=== PATIENT | female | born 1950 | race Caucasian/White ===

== ENCOUNTER 2016-12-18 11:35 | Day surgery (SDC) | payer MEDICARE, OTHER ==
[2016-12-18] MEDS ORDERED: FENTANYL CITRATE INJ/PF 100 MCG/2 ML AMPUL ONE (11:48)
[2016-12-18] MEDS ORDERED: ONDANSETRON HCL INJ/PF 4 MG/2 ML SDV ONE (11:48)
[2016-12-18] MEDS ORDERED: DIPHENHYDRAMINE HCL 50 MG/ML VIAL ONE (11:48)
[2016-12-18] MEDS ORDERED: NALOXONE HCL INJ/PF 0.4 MG/1 ML SDV ONE (11:48)
[2016-12-18] MEDS ORDERED: PROMETHAZINE HCL INJ 25 MG/1 ML VIAL ONE (11:48)
[2016-12-18] MEDS ORDERED: GLUCAGON,HUMAN RECOMB 1 MG INJ ONE (11:49)
[2016-12-18] MEDS ORDERED: EPINEPHRINE INJ 1 MG/10 ML DISP.SYRIN ONE (11:49)
[2016-12-18] MEDS ORDERED: FLUMAZENIL INJ 0.5 MG/5 ML VIAL IV ONE (11:49)
[2016-12-18] MEDS: MIDAZOLAM 2 MG/2 ML INJ ONE ×2 (12:33→12:38)
--- NOTE | 2016-12-18 12:53 | Operative Report ---
Operative Report DATE OF SURGERY: 12/18/16 Operative Report: The risks benefits and alternatives of the procedure explained to the patient in detail and informed consent is obtained that GIF Olympus video scope was inserted into the patient's mouth and hypopharynx the esophagus is identified intubated and insufflated the scope was then advanced through the esophagus stomach and duodenum retroflexion maneuver is done the esophagus stomach and first and second portions of the duodenum examined PREOPERATIVE DIAGNOSIS: Epigastric pain POSTOPERATIVE DIAGNOSIS: Gastritis, duodenitis OPERATION: EGD with biopsy SURGEON: WINSOME ALVAREZ ANESTHESIA: Moderate Sedation - 4 mg of Versed, 75 g of fentanyl. Conscious sedation monitoring time 15 minutes. TISSUE REMOVED OR ALTERED: Gastric specimen obtained rule out Helicobacter pylori COMPLICATIONS: None. ESTIMATED BLOOD LOSS: none INTRAOPERATIVE FINDINGS: Esophagus normal. Gastritis status post biopsy rule out Helicobacter pylori. Mild duodenitis PROCEDURE: Patient tolerated the procedure well. No immediate postprocedure complications are noted. Patient is discharged in good condition. Discharge date 12/18/2016. Discharge diet: Regular. Discharge activity: Regular. 2-3 week follow-up to discuss findings. We'll await on biopsies. Patient is instructed to go to the office or proceed to the emergency room after any further problems or questions
[2016-12-18 13:48] VITALS: BP 102/71
== END 2016-12-18 13:48 | disposition home or self-care (01) ==
LOC: END 11:35
PROVIDERS: ATTEND Internal Medicine Gastroenterology
PROC: 0DB68ZX Excision of Stomach, Via Natural or Artificial Opening Endoscopic, Diagnostic (ICD-10-PCS; principal; 2016-12-18 12:30)
DX: K21.9 Gastro-esophageal reflux disease without esophagitis (principal); K31.9 Disease of stomach and duodenum, unspecified; K29.80 Duodenitis without bleeding; G35 Multiple sclerosis; G89.4 Chronic pain syndrome; Z79.899 Other long term (current) drug therapy
CPT/HCPCS: 43239; 88342 ×2; 88305 ×2; J2250; J3010; J0171; J1200; J1610; J2310; J2405; J2550; J3490

== ENCOUNTER 2018-03-12 18:30 | Emergency (ER) | payer MEDICARE ==
--- NOTE | 2018-03-12 19:11 | RADIOLOGY REPORT (SQ) ---
EXAM DESCRIPTION: CHEST SINGLE VIEW COMPLETED DATE/TIME: 03/12/2018 6:57 pm REASON FOR STUDY: bed 3 sepsis protocol COMPARISON: None. EXAM PARAMETERS: NUMBER OF VIEWS: One view. TECHNIQUE: Single frontal radiographic view of the chest acquired. RADIATION DOSE: NA LIMITATIONS: None. FINDINGS: LUNGS AND PLEURA: Possible 12 mm left pulmonary nodule adjacent to the heart border. 2 sm all nodular densities are present in the right upper lobe. MEDIASTINUM AND HILAR STRUCTURES: No masses. Contour normal. HEART AND VASCULAR STRUCTURES: Heart normal in size. Normal vasculature. BONES: No acute findings. HARDWARE: None in the chest. OTHER: No other significant finding. IMPRESSION: Pulmonary nodules. No acute pulmonary disease. TECHNICAL DOCUMENTATION: JOB ID: [id number] [employer]- All Rights Reserved Reading location - IP/workstation name: [email or web address]
[2018-03-12] MEDS ORDERED: NORMAL SALINE 1000 ML 1,000 ML IV ONE (19:25)
--- NOTE | 2018-03-12 19:32 | ER Document Report ---
ED Dizziness/Weakness - General Chief Complaint: General Weakness Stated Complaint: LETHARGIC Time Seen by Provider: 03/12/18 19:13 Mode of Arrival: Medic Information source: Patient, Relative Notes: Patient is a 67-year-old female who presents with multiple complaints. Patient reports that she has had weakness, chest pressure, headache, cough, back pain, low abdominal pain 3 days. Patient denies any nausea, vomiting or diarrhea and is unsure if she has had a fever. Patient denies any urinary symptoms such as frequency urgency or pain. Patient reports that her only past medical history is MS. patient is very sluggish and slow to respond however she does answer questions appropriately. TRAVEL OUTSIDE OF THE [place] IN LAST 30 DAYS: No - Related Data Allergies/Adverse Reactions: No Known Allergies Allergy (Verified 12/18/16 11:44) Past Medical History - General Information source: Patient, Relative - Social History Smoking Status: Current Every Day Smoker Chew tobacco use (# tins/day): No Frequency of alcohol use: None Drug Abuse: None Family History: Reviewed & Not Pertinent Patient has suicidal ideation: No Patient has homicidal ideation: No - Past Medical History Cardiac Medical History: Denies: Hx Coronary Artery Disease, Hx Heart Attack, Hx Hypertension Pulmonary Medical History: Denies: Hx Asthma, Hx Bronchitis, Hx COPD, Hx Pneumonia Neurological Medical History: Denies: Hx Cerebrovascular Accident, Hx Seizures Renal/ Medical History: Denies: Hx Peritoneal Dialysis Musculoskeltal Medical History: Denies Hx Arthritis, Reports Other - MS Past Surgical History: Reports: Hx Appendectomy, Hx Hysterectomy, Hx Tonsillectomy - Immunizations Hx Diphtheria, Pertussis, Tetanus Vaccination: Yes Hx Pneumococcal Vaccination: 10/21/14 Review of Systems - Review of Systems Constitutional: See HPI EENT: No symptoms reported Cardiovascular: See HPI Respiratory: See HPI Gastrointestinal: See HPI Genitourinary: No symptoms reported Female Genitourinary: No symptoms reported Musculoskeletal: See HPI Skin: No symptoms reported Hematologic/Lymphatic: No symptoms reported Neurological/Psychological: No symptoms reported Physical Exam - Vital signs Vitals: Pulse Ox 90 L 03/12/18 18:56 - Notes Notes: PHYSICAL EXAMINATION: GENERAL: Well-appearing, well-nourished and in no acute distress. HEAD: Atraumatic, normocephalic. EYES: Pupils equal round and reactive to light, extraocular movements intact, conjunctiva are normal. ENT: Nares patent, oropharynx clear without exudates. Moist mucous membranes. NECK: Normal range of motion, supple without lymphadenopathy. LUNGS: Breath sounds clear to auscultation bilaterally and equal. No wheezes rales, rhonchi to lower lobes. HEART: Regular rate and rhythm without murmurs ABDOMEN: Soft, nontender, nondistended abdomen. No guarding, no rebound. No masses appreciated. Female : deferred Musculoskeletal: Normal range of motion, no pitting or edema. No cyanosis. NEUROLOGICAL: Cranial nerves grossly intact. Normal speech. Normal sensory, motor exams PSYCH: Normal mood, flat affect. SKIN: Warm, Dry, normal turgor, no rashes or lesions noted. Course - Re-evaluation Re-evalutation: 67-year-old female presents with multiple complaints. Patient reports that her only history is a medicine that she does not have a local doctor. Patient reports that she has been sick with a multitude of symptoms for at least 3 days , has been states that has been closer to a week. Patient reports that she feels like she has a major infection she feels extremely weak and has had no energy for multiple days now. Will do a complete septic workup to include cardiac enzymes as patient is also complaining of nonspecific chest pain. EKG shows sinus rhythm with rate of 73, normal axis, no ST ST segment elevations or depressions. Chest x-ray shows 2 small pulmonary nodules. CBC, chemistry unremarkable. Urinalysis unremarkable. Cardiac enzymes and lactic acid are unremarkable and within normal limits. Patient ambulated on pulse ox and maintained O2 sats greater than 93%. Patient is now having productive cough. Will treat patient with doxycycline for beginning of pneumonia based on physical exam findings. Patient understands the need to follow-up with her primary care provider, Stephani Thornton within the next week for a recheck as well as to follow-up on the pulmonary nodules showing on chest x-ray. Patient understands ED return precautions. - Vital Signs Vital signs: Temp Pulse Resp BP Pulse Ox 15 108/59 L 93 03/13/18 00:01 03/13/18 00:01 03/13/18 00:01 - Laboratory Result Diagrams: 03/12/18 20:05 03/12/18 20:05 Laboratory results interpreted by me: 03/12/18 03/12/18 03/12/18 20:05 20:05 21:24 WBC 10.7 H RDW 14.2 H Seg Neutrophils % 83.5 H Lymphocytes % 10.4 L Absolute Neutrophils 8.9 H Chloride 110 H Carbon Dioxide 21 L Glucose 113 H Urine Ketones TRACE H Urine Blood SMALL H Urine Urobilinogen 4.0 H Discharge - Discharge Clinical Impression: Pneumonia Qualifiers: Pneumonia type: due to unspecified organism Laterality: unspecified laterality Lung location: unspecified part of lung Qualified Code(s): J18.9 - Pneumonia, unspecified organism Condition: Stable Disposition: HOME, SELF-CARE Additional Instructions: Pneumonia Your examination indicates that you have the start of a pneumonia. This is an infection of the lung tissue, usually caused by bacteria or a virus. Symptoms include cough, fever, shaking chills, chest pain, shortness of breath, and coughing up bloody sputum. Treatment for bacterial pneumonia includes rest, antibiotics for 10 to 14 days, increasing your clear liquid intake, a cool mist humidifier at your bedside, and fever medication. Often, a repeat chest X-ray is performed in a few weeks--even if you feel better--to ascertain whether the infection has completely resolved and no underlying lung problem is present. You should call the physician if you develop persistent vomiting, high fever that does not respond to fever medication, increasing shortness of breath , confusion, or lethargy. Also, failure to improve within two to three days is an indication for re-examination. Please follow-up with your primary care provider, Stephani Thornton in the next 3 -5 days for a recheck of your pneumonia as well as your possible pulmonary nodules. Take the antibiotics as prescribed and please complete the entire course even if you are feeling better. Return to the emergency department for worsening shortness of breath, difficulty breathing or any other symptom that is concerning to you. Prescriptions: Doxycycline Hyclate 100 mg PO BID #14 capsule
[2018-03-12 20:19] LABS: ABSOLUTE LYMPHOCYTES (AUTO) 1.1 10^3/uL (0.5-4.7); ABSOLUTE MONOCYTES (AUTO) 0.6 10^3/uL (0.1-1.4); ABSOLUTE NEUT (AUTO) 8.9 10^3/uL (1.7-8.2); BASOPHILS % (AUTO) 0.4 % (0-2); HEMATOCRIT 44.7 % (36.0-47.0); LYMPHOCYTES % (AUTO) 10.4 % (13-45); MEAN CORPUSCULAR HEMOGLOBIN 30.1 pg (27.0-33.4); MEAN CORPUSCULAR HGB CONC 33.6 g/dL (32.0-36.0); MEAN CORPUSCULAR VOLUME 90 fl (80-97); MONOCYTES % (AUTO) 5.7 % (3-13); PLATELET COUNT 246 10^3/uL (150-450); RED BLOOD COUNT 4.99 10^6/uL (3.72-5.28); RED CELL DISTRIBUTION WIDTH 14.2 % (11.5-14.0); SEGMENTED NEUTROPHILS % (AUTO) 83.5 % (42-78); TOTAL CELLS COUNTED % (AUTO) 100 %; WHITE BLOOD COUNT 10.7 10^3/uL (4.0-10.5)
[2018-03-12 20:29] LABS: PROTHROMBIN TIME 13.7 SEC (11.4-15.4)
[2018-03-12 20:32] LABS: ALANINE AMINOTRANSFERASE 25 U/L (9-52); ALBUMIN 4.1 g/dL (3.5-5.0); ALKALINE PHOSPHATASE 72 U/L (38-126); ANION GAP 12 (5-19); ASPARTATE AMINO TRANSFERASE 15 U/L (14-36); BILIRUBIN,DIRECT 0.3 mg/dL (0.0-0.4); BILIRUBIN,TOTAL 0.4 mg/dL (0.2-1.3); BLOOD UREA NITROGEN 14 mg/dL (7-20); CALCIUM 9.6 mg/dL (8.4-10.2); CARBON DIOXIDE 21 mmol/L (22-30); CHLORIDE 110 mmol/L (98-107); CREATINE KINASE 44 U/L (30-135); GLUCOSE 113 mg/dL (75-110); SODIUM 143.4 mmol/L (137-145); TOTAL PROTEIN 7.4 g/dL (6.3-8.2)
[2018-03-12 20:43] LABS: CREATINE KINASE MB 0.36 ng/mL (<4.55)
[2018-03-12 20:44] LABS: TROPONIN I < 0.012 ng/mL
[2018-03-12 21:00] LABS: VENOUS BLOOD HCO3 20.3 mmol/L (20-32); VENOUS BLOOD PCO2 38.9 mmHg (35-63); VENOUS BLOOD PH 7.34 (7.30-7.42)
[2018-03-12 21:44] LABS: APPEARANCE,URINE CLEAR; BILIRUBIN,URINE NEGATIVE (NEGATIVE); COLOR,URINE YELLOW; GLUCOSE, URINE NEGATIVE (NEGATIVE); KETONES,URINE TRACE mg/dL (NEGATIVE); LEUKOCYTE ESTERASE,URINE NEGATIVE (NEGATIVE); NITRITE,URINE NEGATIVE (NEGATIVE); PROTEIN,URINE NEGATIVE (NEGATIVE); URINE SPECIFIC GRAVITY 1.011
[2018-03-12] MEDS ORDERED: DOXYCYCLINE HYCLATE 100 MG TABLET PO ONE (23:36)
[2018-03-13 00:20] VITALS: BP 108/59
--- NOTE | 2018-03-13 07:41 | EKG REPORT ---
SEVERITY:- NORMAL ECG - SINUS RHYTHM : Confirmed by: Jackson Barahona MD 13-Mar-2018 07:41:27
== END 2018-03-13 00:30 | disposition home or self-care (01) ==
LOC: ER 18:30
DX: J18.9 Pneumonia, unspecified organism (principal); R53.1 Weakness; R07.9 Chest pain, unspecified; R51 Headache; R05 Cough; M54.9 Dorsalgia, unspecified; R10.30 Lower abdominal pain, unspecified; G35 Multiple sclerosis; F17.200 Nicotine dependence, unspecified, uncomplicated
CPT/HCPCS: 93005; 99285; 96360; 36415; 87040; 87086; 82553; 82550; 85025; 85610; 80053; 81001; 84484; 82803; 83605; 71045; 93010; A9270; J7030